=== PATIENT | female | born 1955 | race Caucasian/White ===

== ENCOUNTER → 2019-03-18 08:56 | Outpatient (CLI) | payer MEDICARE, OTHER, SELFPAY ==
--- NOTE | 2019-03-18 08:58 | DI.RAD.S_ITS ---
PROCEDURE: XR ANKLE RT MIN 3V INDICATIONS: r ankle pain TECHNIQUE: 3 views of the ankle were acquired. COMPARISON: None. FINDINGS: Bones: Acute fracture involving tip of lateral malleolus is seen with no significant displacement of fracture fragments. No other fracture or dislocation. Ankle mortise is normally aligned. No suspicious bony lesions. Soft tissues: No tibiotalar joint effusion. Achilles tendon appears normal. Soft tissue swelling over lateral malleolus is seen. IMPRESSION: Tiny avulsion fracture involving tip of lateral malleolus. Mild lateral ankle soft tissue swelling. Dictated by: Shaun Kim M.D. on 03/18/2019 at 9:41 Approved by: Shaun Kim M.D. on 03/18/2019 at 9:42
== END ==
PROVIDERS: Visit Provider Physician Assistant
DX: M25.571 Pain in right ankle and joints of right foot (principal); S82.61XA Displaced fracture of lateral malleolus of right fibula, initial encounter for closed fracture; M79.89 Other specified soft tissue disorders
CPT/HCPCS: 73610

== ENCOUNTER 2024-03-26 11:21 | Observation (INO) | payer MEDICARE, OTHER, SELFPAY ==
[2024-03-26] VITALS (14 sets, daily range): BP systolic 158–204; BP diastolic 80–100; PULSE 56–74; RESP 14–31; TEMP 36.3–36.8; O2SAT 93–99; BMI 24.7
--- NOTE | 2024-03-26 | DI.ECHO.S_ITS ---
[facility] : : [address] : : [place] : : [id number] : : Phone: [phone] Echocardiogram Report + + :Name: TON HOLDER Study Date: 03/27/2024 Height: 63 in : :[facility] ReadingLocation: Weight: 140 lb : : Gender: Female BSA: 1.7 m2 : :: 1955 Age: 68 yrs BP: 139/69 mmHg: :Reason For Study: STROKE : :Ordering Physician: STEPHANIE, : :MIKA Golden Performed By: Nicole Soto : :Referring: MIKA BROWN : + + Interpretation Summary Left ventricular ejection fraction is estimated to be 50%. Injection of contrast documented no interatrial shunt. There is mild mitral regurgitation. The right ventricular systolic pressure is estimated to be at least 23 mmHg based on an estimated right atrial pressure of 3 mm Hg. There is mild tricuspid regurgitation. Procedure: A two-dimensional transthoracic echocardiogram with color flow and Doppler was performed. The study quality was technically adequate. There is no prior echocardiogram noted for this patient. A saline contrast injection was performed to assess for cardiac shunting. The patient was in sinus bradycardia with heart rates between 55-61 bpm during the exam. Left Ventricle: The left ventricle is normal in size and wall thickness. Left ventricular ejection fraction is estimated to be 50%. There are no obvious focal wall motion abnormalities noted but poor endocardial definition reduces the sensitivity for the detection of such. Right Ventricle: The right ventricle is normal in size and function. Atria: The left atrium is mildly dilated. Right atrial size is normal. There is no Doppler evidence for an interatrial shunt. Injection of contrast documented no interatrial shunt. Mitral Valve: The mitral valve is normal in structure and function. There is mild mitral regurgitation. Aortic Valve: The aortic valve is not well visualized. There is no aortic valve stenosis. There is trace aortic regurgitation. Tricuspid Valve: The tricuspid valve is normal in structure and function. There is mild tricuspid regurgitation. The right ventricular systolic pressure is estimated to be at least 23 mmHg based on an estimated right atrial pressure of 3 mm Hg. Pulmonic Valve: The pulmonic valve leaflets are thin and pliable; valve motion is normal. There is mild pulmonic regurgitation. Great Vessels: The aortic root is normal size. The dimensions of the ascending aorta are normal. The IVC is of normal diameter and collapses greater than 50% with a sniff. This suggests a low right atrial pressure of 3 mm Hg. Pericardium/ Pleura There is no pericardial effusion. There is no pleural effusion. MMode/2D Measurements & Calculations LVIDd: 3.8 cm LVOT diam: 2.0 cm LVIDs: 2.6 cm Ao root diam: 3.3 cm FS: 31.7 % asc Aorta Diam: 3.3 cm IVSd: 0.97 cm Ao Arch Diam (Prox Trans): 2.3 cm LVPWd: 0.63 cm LV chinchilla. diameter/BSA (cm/m^2): 2.3 LV sys. diameter/BSA (cm/m^2): 1.6 LA A2 area: 22.2 cm2 RA long axis: 4.8 cm LA A4 area: 15.2 cm2 RA area: 12.8 cm2 LA length (vol): 4.9 cm RA vol: 29.1 ml LA vol: 58.6 ml RA : 17.5 ml/m2 LA vol index: 35.2 ml/m2 IVC diam: 1.7 cm RVD1 (basal): 3.8 cm RVD2 (mid): 2.7 cm TAPSE: 1.9 cm Doppler Measurements & Calculations Ao V2 max: 115.4 cm/sec LVOT Max Rodolfo: 77.9 cm/sec Ao V2 mean: 82.0 cm/sec LV V1 max P.4 mmHg Ao max P.3 mmHg LV V1 VTI: 20.8 cm Ao mean P.9 mmHg FREDIS(I,D): 2.2 cm2 Ao V2 VTI: 28.4 cm FREDIS(V,D): 2.1 cm2 sev ratio: 0.73 FREDIS indexed to BSA (cm^2/m^2): 1.3 MV E max rodolfo: 50.8 cm/sec TR max rodolfo: 222.7 cm/sec MV A max rodolfo: 65.6 cm/sec TR max P.8 mmHg MV E/A: 0.77 PA V2 max: 69.7 cm/sec Med Peak E' Rodolfo: 6.1 cm/sec PA V2 mean: 47.2 cm/sec E/E' med: 8.3 PA mean P.99 mmHg Lat Peak E' Rodolfo: 8.5 cm/sec PA pr(Accel): 22.5 mmHg E/E' lat: 6.0 E/e' average: 7.2 MV dec time: 0.35 sec SV(LVOT): 63.4 ml Reading Physician:09:37 AM
--- NOTE | 2024-03-26 11:48 | EKG_ITS ---
[address] [address] Test Date: 2024-03-26 Pat Name: Colleen Tomlinson Department: [facility] Room: Gender: Female [employer] Designer: MATT HEMPHILL : 1955 Requested By: Order Number: [id number] Reading MD: Greg Nails MD Measurements Intervals [place] Rate: 63 P: 58 [place]: 168 QRS: -29 QRSD: 74 T: 47 QT: 458 QTc: 468 Interpretive Statements Normal sinus rhythm Electronically Signed On 03-27-2024 7:56:37 PDT by Greg Nails MD
--- NOTE | 2024-03-26 11:48 | DI.RAD.S_ITS ---
PROCEDURE: XR CHEST 1V INDICATIONS: Possible stroke TECHNIQUE: One view of the chest was acquired. COMPARISON: None. FINDINGS: Surgical changes and devices: Surgical clips project over the mediastinum. Lungs and pleura: Lungs are clear. No pleural effusions or pneumothorax. Mediastinum: Mediastinal contours appear normal. Heart size is normal. Bones and chest wall: No suspicious bony lesions. Overlying soft tissues appear unremarkable. IMPRESSION: No acute cardiopulmonary abnormality is seen. Dictated by: Jeet Arnold M.D. on 03/26/2024 at 11:36 Approved by: Jeet Arnold M.D. on 03/26/2024 at 11:37
--- NOTE | 2024-03-26 11:49 | DI.CT.S_ITS ---
PROCEDURE: CT HEAD/BRAIN WO CON INDICATIONS: r/o stroke TECHNIQUE: Noncontrast 4.5 mm thick angled axial sections acquired from the foramen magnum to the vertex, with coronal and sagittal reformats. For radiation dose reduction, the following was used: automated exposure control, adjustment of mA and/or kV according to patient size. COMPARISON: None. FINDINGS: Image quality: Diagnostic. CSF spaces: Basal cisterns are patent. No extra-axial fluid collections. The ventricles are symmetric in size and shape. Brain: No intracranial bleeds or masses. There is cerebral volume loss for age, with resultant ventricular and sulcal prominence. There are periventricular and deep white matter chronic small vessel ischemic changes. There is intracranial internal carotid artery atherosclerosis. Skull and face: Calvarium and visualized facial bones appear intact, without suspicious lesions. Sinuses: Visualized sinuses and mastoids are clear. IMPRESSION: No acute intracranial pathology. Dictated by: eJet Arnold M.D. on 03/26/2024 at 11:55 Approved by: Jeet Arnold M.D. on 03/26/2024 at 11:56
--- NOTE | 2024-03-26 11:50 | DI.CT.S_ITS ---
PROCEDURE: CT ANGIO HEAD AND NECK INDICATIONS: r/o stroke TECHNIQUE: After the administration of intravenous contrast, 1 mm thick sections acquired from the aortic arch through the [place] of [place]. 3-dimensional bdahpmx-zxrfklwij-yzdkashinu (MIP) and/or volume rendering reformats were acquired of the central intracranial vasculature and neck separately. For radiation dose reduction, the following was used: automated exposure control, adjustment of mA and/or kV according to patient size. COMPARISON: [facility], CT, CT HEAD/BRAIN WO CON, 03/26/2024, 12:02. FINDINGS: Image quality: Diagnostic. BRAIN: CSF spaces: Ventricles are normal in size and shape. Basal cisterns are patent. No extra-axial fluid collections. Brain: No significant abnormality of the brain can be seen. Skull and face: Calvarium and facial bones appear intact, without suspicious lesions. Orbits appear normal. Sinuses: Sinuses and mastoids are clear. HEAD CT ANGIOGRAPHY: Anterior circulation: Intracranial internal carotid arteries are normal in size and flow. The flow within the paired anterior cerebral arteries is normal and symmetric. The flow within the middle cerebral arteries is normal and symmetric. The anterior communicating artery is seen. No aneurysms are seen. Posterior circulation: Visualized portions of the vertebral arteries demonstrate normal caliber, and join to form a normal appearing basilar artery. Flow within the posterior cerebral arteries is normal and symmetric. No aneurysms are seen. NECK CT ANGIOGRAPHY: Carotid system: The great vessels demonstrate a conventional anatomy as they arise from the aortic arch. The origins of the common carotid arteries appear patent. The common carotid arteries demonstrate normal caliber and courses. The bifurcation regions are both widely patent. The internal carotid arteries demonstrate normal calibers and courses. Posterior circulation: The origins of the vertebral arteries both appear widely patent. The more superior extracranial portions of both vertebral arteries also demonstrate normal courses and calibers. They join to form a normal appearing basilar artery. Soft tissues: Visualized neck soft tissues demonstrate no suspicious abnormalities. Bones: No suspicious bony lesions. Visualized cervical spine appears normally aligned. IMPRESSION: No significant intracranial arterial abnormality is seen. No significant abnormality is seen within the arteries of the neck. Any quantitative measurements of stenosis were performed using NASCET criteria. Dictated by: Jeet Arnold M.D. on 03/26/2024 at 11:52 Approved by: Jeet Arnold M.D. on 03/26/2024 at 11:55
--- NOTE | 2024-03-26 12:05 | ED.NEUROSD ---
HPI - Neuro Symptoms/Deficit General Chief Complaint: Neuro Symptoms/Deficit Stated Complaint: poss stroke Time Seen by Provider: 03/26/24 11:57 Source: patient Mode of arrival: Ambulatory Limitations: no limitations History of Present Illness HPI Narrative: 68-year-old female history of hypertension, skin cancers who presents with complaint of left upper extremity and lower extremity weakness with a little bit of sensation change. Patient states maybe a little bit her left cheek as well. She noticed changes yesterday they had driven from [place] she got out of the car at the grocery store noticed it was difficult for her to lift her leg out of the car. She is noticed she has had a little bit of leg dragging the left side she has had a work little bit harder to walk. She is noticed her left upper extremity has also been weaker. She denies any vision changes no difficulty with speech. No headaches. Denies any fevers. No chest pain or shortness of breath. No nausea or vomiting. No other GI or urinary symptoms. Has not had similar symptoms in the past. Patient states she has had prior lumpectomy with breast reconstruction in 1999 8. In 2020 she had multiple surgeries and skin grafts for a basal cell carcinoma and MAC of the forehead and nose. Patient takes losartan and metoprolol as her home medications. States she was allergic to wall but no known drug allergies. Denies tobacco, occasional alcohol, no recreational drugs. She lives in [place] and is visiting the area with her . On Anticoagulants: No Related Data Home Medications Medication Instructions Recorded Confirmed denosumab 60 mg/mL subcutaneous 60 mg SUBCUT [id number] 03/18/19 03/26/24 syringe (Prolia) letrozole 2.5 mg tablet 2.5 mg PO ONCE PM 03/26/24 03/26/24 losartan 100 mg tablet 100 mg PO DAILY 03/26/24 03/26/24 metoprolol succinate 25 mg 25 mg PO DAILY 03/26/24 03/26/24 tablet,extended release 24 hr triamcinolone acetonide 0.1 % 1 applic topical DAILY 03/26/24 03/26/24 topical ointment Allergies Allergy/AdvReac Type Severity Reaction Status Date / Time No Known Drug Allergies Allergy Verified 03/18/19 10:02 Review of Systems Review of Systems ROS Unobtainable: All systems reviewed & are unremarkable except as noted in HPI and below Hematologic/Lymphatic On Anticoagulants: No Patient History Social History household members: spouse Smoking Status: Never smoker alcohol intake: current Smoking Status: Never smoker alcohol intake frequency: 0-2 drinks per day Substance Use Type: does not use Exam Narrative Exam Narrative: GEN: well nourished, well appearing female, alert and oriented x 3, patient appears to be in mild distress. HEENT: Atraumatic, patient does have some healed scarring of the left forehead and nose consistent with her history of prior surgeries and skin graft, pupils are equal round reactive to light, extraocular movements are intact, nares are clear, there is no conjunctival pallor. Throat is clear without any exudates, erythema, tonsillar enlargement or uvular deviation, no facial droop. HEART: Regular rate and rhythm without murmur, clicks, rubs. Pulses are equal in upper and lower extremities LUNGS:Lungs clear to auscultation, no wheezes, rales, crackles, chest moves symmetrically ABD:bowel sounds normal, soft, non-tender, no guarding, rebound, rigidity, no masses noted, no hepatosplenomegaly :No CVA tenderness MSCL: Non-tender, no muscle atrophy, patient has drift with her left upper extremity, full range of motion, normal gait NEURO:CN 2-12 intact, sensation normal, finger nose finger test normal with the right upper extremity patient has some mild difficulty with the left, heel hutton test normal the right patient appears to after try a little bit harder with her left lower extremity.. SKIN: No rash, erythema or other skin changes. Initial Vital Signs Initial Vital Signs: Vital Signs Temperature 98.2 F 03/26/24 11:25 Pulse Rate 72 03/26/24 11:25 Respiratory Rate 23 03/26/24 11:25 Blood Pressure 204/100 H 03/26/24 11:25 Pulse Oximetry 98 03/26/24 11:25 Oxygen Delivery Method Room Air 03/26/24 11:25 Scores NIH Stroke Scale Level of Conciousness: Alert, keenly responsive Ask month/age: Answers both questions correctly. Open/close eyes, close hand: Performs both tasks correctly Best gaze horizontal: Normal Visual yanes: No visual loss Facial palsy: Normal symetrical movement Left arm drift: Drifts down, not to bed Right arm drift: No drift for full 10 sec Left leg drift: No drift for full 5 sec Right leg drift: No drift for full 5 sec Limb ataxia: Present in two limbs Sensory on face/arms/legs: Normal, no sensory loss Best language: No aphasia, normal Dysarthria: Normal Extinction or inattention: No abnormality Total NIH Stroke scale score: 3 Course Orders Ordered: ED Orders 03/26/24 11:44 Complete Blood Count AUTO DIFF Stat Comprehensive Metabolic Panel Stat Magnesium Stat PTT Partial Thromboplastin Elliot Stat Prothrombin Time INR Stat Troponin & CK Cardiac Panel Stat 03/26/24 11:48 XR chest 1V Stat EKG-12 Lead Stat 03/26/24 11:49 CT head/brain wo con Stat 03/26/24 11:50 CT angio head and neck Stat 03/26/24 12:23 Urine Drug Screen, Rapid Stat Urine Microscopic Stat Acetaminophen (Acetaminophen 325 Mg Tablet) 650 mg PO Q6H PRN PRN Reason: Fever/Mild Pain (1-3) Aspirin (Aspirin Ec 81 Mg Tablet) 81 mg PO DAILY [facility] Atorvastatin Calcium (Atorvastatin 20 Mg Tablet) 80 mg PO BEDTIME [facility] Calcium Carbonate (Calcium Carbonate 500 Mg Tab) 1,000 mg PO Q4HR PRN PRN Reason: Dyspepsia Clopidogrel Bisulfate (Clopidogrel 75 Mg Tablet) 75 mg PO DAILY [facility] Last Admin: 03/26/24 15:20 Dose: 75 mg Documented By: MPO Heparin Sodium (Porcine) (Heparin 5,000 Unit/Ml Vial) 5,000 unit SUBCUT BID [facility] Last Admin: 03/26/24 15:20 Dose: 5,000 unit Documented By: MPO Letrozole (Letrozole 2.5 Mg Tablet) 2.5 mg PO BEDTIME [facility] Naloxone HCl (Naloxone 0.4 Mg/Ml Vial) 0.2 mg IV Q2MIN PRN PRN Reason: Opiate Reversal Ondansetron HCl (Ondansetron 4 Mg/2 Ml Inj) 4 mg IV NOW PRN PRN Reason: Nausea And Vomiting Ondansetron HCl (Ondansetron 4 Mg Odt) 4 mg SL NOW PRN PRN Reason: Nausea And Vomiting Ondansetron HCl (Ondansetron 4 Mg/2 Ml Inj) 4 mg IV Q8HR PRN PRN Reason: Nausea And Vomiting Discontinued Medications Aspirin (Aspirin 81 Mg Chew Tab) 324 mg PO NOW ONE Stop: 03/26/24 13:29 Last Admin: 03/26/24 13:50 Dose: 324 mg Documented By: ALEE Aspirin (Aspirin Ec 81 Mg Tablet) 81 mg PO DAILY [facility] Last Admin: 03/26/24 15:26 Dose: Not Given Documented By: ALEE Vital Signs Vital signs: Vital Signs - 8 hr 03/26/24 11:25 03/26/24 11:36 03/26/24 11:45 Temperature 98.2 F Pulse Rate 72 74 Respiratory Rate 23 31 H Blood Pressure 204/100 H 194/91 H Pulse Oximetry 98 95 Oxygen Delivery Method Room Air 03/26/24 11:45 03/26/24 12:00 03/26/24 12:00 Temperature Pulse Rate 63 65 Respiratory Rate 26 H 29 H Blood Pressure 181/92 H Pulse Oximetry 97 97 Oxygen Delivery Method MDM - Neuro Symptoms/Deficit Lab Data 03/26/24 11:44 03/26/24 11:44 Labs: Lab Results 03/26/24 03/26/24 Range/Units 11:44 12:23 WBC 8.1 (4.5-11.0) X10^3/uL RBC 4.68 (4.0-5.2) X10^6/uL Hgb 13.8 (12.0-16.0) g/dL Hct 41.2 (36-46) % MCV 88.0 (80-100) fL MCH 29.4 (26-34) PG MCHC 33.4 (30-36) % RDW 14.3 (11.6-14.8) % Plt Count 287 (150-400) X10^3/uL Neut % (Auto) 61.3 (50-75) % Lymph % (Auto) 28.8 (25-40) % [place] % (Auto) 6.8 (3-14) % Eos % (Auto) 2.0 (2-4) % Baso % (Auto) 1.1 (0-2) % Neut # (Auto) 4900 (8417-6411) /uL Lymph # (Auto) 2300 (2223-8542) /uL [place] # (Auto) 600 (0-900) /uL Eos # (Auto) 200 (0-450) /uL Baso # (Auto) 100 (0-100) /uL PT 11.1 (9.4-12.5) SECONDS INR 1.0 (0.9-1.3) APTT 36 (25.1-36.5) SECONDS Sodium 140 (137-145) mmol/L Potassium 4.3 (3.4-5.1) mmol/L Chloride 109 H (98-107) mmol/L Carbon Dioxide 25 (22-32) mmol/L BUN 17 (7-17) mg/dL Creatinine 0.67 (0.52-1.04) mg/dL Estimated GFR > 60 (>60) mL/min BUN/Creatinine Ratio 25.4 H (6-22) Glucose 111 H (80-110) mg/dL Hemoglobin A1c 5.7 (4.0-6.0) % Calcium 9.5 (8.4-10.2) mg/dL Magnesium 2.4 H (1.6-2.3) mg/dL Total Bilirubin 1.1 (0.2-1.3) mg/dL AST 25 (14-36) IU/L ALT 17 (<35) IU/L Alkaline Phosphatase 96 (38-126) U/L Total Creatine Kinase 74 (30-135) U/L Troponin I < 0.012 (0.01-0.034) ng/mL Total Protein 7.8 (6.3-8.2) g/dL Albumin 4.2 (3.5-5.0) g/dL Globulin 3.6 (1.7-4.1) g/dL Albumin/Globulin Ratio 1.2 (1.0-2.8) Urine RBC None seen (0-5/HPF) Urine WBC None seen (0-5/HPF) Ur Squamous Epith Cells None seen (0-5/HPF) Urine Bacteria None seen (None) Ur Culture Indicated? Cult not indicated Vol Urine Centrifuged 10ml (spun) U Opiates 300ng/mL cut Negative (Negative) Ur Oxycodone Screen Negative (Negative) Urine Methadone Screen Negative (Negative) Ur Barbiturates Screen Negative (Negative) U Tricyclic Antidepress Negative (Negative) Ur Phencyclidine Scrn Negative (Negative) Ur Amphetamines Screen Negative (Negative) U Methamphetamines Scrn Negative (Negative) Ur MDMA Scrn (Ecstasy) Negative (Negative) U Benzodiazepines Scrn Negative (Negative) Urine Cocaine Screen Negative (Negative) U Marijuana (THC) Screen Negative (Negative) Urine pH Normal (Normal) Urine Specific [place] Normal (Normal) Ur Creatinine Normal (Normal) Point of Care Testing Glucose POC 111 Urine Dip Bedside Urine Glucose Negative Bedside Urine Bilirubin - Negative Bedside Urine Ketone - Negative Urine Specific [place] 1.005 Bedside Urine Occult Blood - Negative Bedside Urine pH 6.5 Bedside Urine Protein - Negative Bedside Urine Urobilinogen - Negative Bedside Urine Nitrite - Negative Bedside Urine Leukocytes +/- [address] scan - head: Radiologist's Impression: [address] [address] [address] Scan Report Signed Patient: Colleen Tomlinson MR#: [id number] : 1955 Acct:[id number] Age/Sex: 68 / F Date of Service: 03/26/24 Loc: ED Accession Number: [id number] Procedure: CT head/brain wo con Ordering Provider: Tisha Levy D.O. PROCEDURE: CT HEAD/BRAIN WO CON INDICATIONS: r/o stroke TECHNIQUE: Noncontrast 4.5 mm thick angled axial sections acquired from the foramen magnum to the vertex, with coronal and sagittal reformats. For radiation dose reduction, the following was used: automated exposure control, adjustment of mA and/or kV according to patient size. COMPARISON: None. FINDINGS: Image quality: Diagnostic. CSF spaces: Basal cisterns are patent. No extra-axial fluid collections. The ventricles are symmetric in size and shape. Brain: No intracranial bleeds or masses. There is cerebral volume loss for age, with resultant ventricular and sulcal prominence. There are periventricular and deep white matter chronic small vessel ischemic changes. There is intracranial internal carotid artery atherosclerosis. Skull and face: Calvarium and visualized facial bones appear intact, without suspicious lesions. Sinuses: Visualized sinuses and mastoids are clear. IMPRESSION: No acute intracranial pathology. Dictated by: Jeet Arnold M.D. on 03/26/2024 at 11:55 Approved by: Jeet Arnold M.D. on 03/26/2024 at 11:56 CTA - brain/neck: Radiologist's Impression: [address] [address] [address] Scan Report Signed Patient: Colleen Tomlinson MR#: [id number] : 1955 Acct:[id number] Age/Sex: 68 / F Date of Service: 03/26/24 Loc: ED Accession Number: [id number] Procedure: CT head/brain wo con Ordering Provider: Tisha Levy D.O. PROCEDURE: CT HEAD/BRAIN WO CON INDICATIONS: r/o stroke TECHNIQUE: Noncontrast 4.5 mm thick angled axial sections acquired from the foramen magnum to the vertex, with coronal and sagittal reformats. For radiation dose reduction, the following was used: automated exposure control, adjustment of mA and/or kV according to patient size. COMPARISON: None. FINDINGS: Image quality: Diagnostic. CSF spaces: Basal cisterns are patent. No extra-axial fluid collections. The ventricles are symmetric in size and shape. Brain: No intracranial bleeds or masses. There is cerebral volume loss for age, with resultant ventricular and sulcal prominence. There are periventricular and deep white matter chronic small vessel ischemic changes. There is intracranial internal carotid artery atherosclerosis. Skull and face: Calvarium and visualized facial bones appear intact, without suspicious lesions. Sinuses: Visualized sinuses and mastoids are clear. IMPRESSION: No acute intracranial pathology. Dictated by: Jeet Arnold M.D. on 03/26/2024 at 11:55 Approved by: Jeet Arnold M.D. on 03/26/2024 at 11:56 Chest x-ray: Radiologist's Impression: Close Head/Neck CTA (Signed) Jeet Arnold - 03/26/[address] (Signed) Jeet Arnold - 03/26/24 Chest X-Ray (Signed) Jeet Arnold - 03/26/24 Ankle X-Ray (Signed) Shaun Kim - 03/18/19 [place] [address] XRay Report Signed Patient: Colleen Tomlinson MR#: [id number] : 1955 Acct:[id number] Age/Sex: 68 / F Date of Service: 03/26/24 Loc: ED Accession Number: [id number] Procedure: XR chest 1V Ordering Provider: Tisha Levy D.O. PROCEDURE: XR CHEST 1V INDICATIONS: Possible stroke TECHNIQUE: One view of the chest was acquired. COMPARISON: None. FINDINGS: Surgical changes and devices: Surgical clips project over the mediastinum. Lungs and pleura: Lungs are clear. No pleural effusions or pneumothorax. Mediastinum: Mediastinal contours appear normal. Heart size is normal. Bones and chest wall: No suspicious bony lesions. Overlying soft tissues appear unremarkable. IMPRESSION: No acute cardiopulmonary abnormality is seen. Dictated by: Jeet Arnold M.D. on 03/26/2024 at 11:36 Approved by: Jeet Arnold M.D. on 03/26/2024 at 11:37 ECG Data Attestation: I personally reviewed and interpreted this ECG as follows: Interpretation: Sinus rhythm rate of 63 MS 168 QRS is 74 QTC of 468. No acute ST elevation or depression. MDM Narrative Medical decision making narrative: 68-year-old female who presents with complaint of left-sided weakness numbness that has been 24 hours present. Patient noticed it after she was getting out of the car yesterday progressive little bit to her upper extremity. No so little bit of numbness. She is able to ambulate but does note weakness. She does have some change in her NIH today is 3. Patient's symptoms seem most consistent with stroke. Non-con head CT is negative, CT angio shows no acute intracranial abnormalities or vascular changes. Chest x-ray is negative for acute change. Labs show white count 8.1 hemoglobin of 13 platelets of 287. Coags are negative, chloride 109 electrolytes are otherwise normal creatinine 0.67, troponins less than 0.012 with a Mag of 2 point and glucose of 111. UDS is negative EKG shows sinus rhythm. Patient given aspirin 324 mg she does not take any anticoagulation. Patient is not tPA candidate based on being outside therapeutic window. Spoke with Dr. Bazan who accepts plan for observation for stroke workup. Stroke Core Measures Exclusion Criteria TPA in CVA: Symptom Onset >3 or 4.5 Hours Discharge Plan Departure Patient Disposition: Admitted as Observation Clinical Impression: Cerebrovascular accident Admit Date/Time: 03/26/24 14:01 Admit Provider: Sonny Bazan
[2024-03-26 12:06] LABS: Add Manual Diff / Slide Review NO; Basophils Absolute Auto 100 /uL (0-100); Basophils Percent Auto 1.1 % (0-2); Eosinophils Absolute Auto 200 /uL (0-450); Hematocrit 41.2 % (36-46); Hemoglobin 13.8 g/dL (12.0-16.0); Lymphocytes Absolute Auto 2300 /uL (1100-4500); Lymphocytes Percent Auto 28.8 % (25-40); Mean Corpuscular HGB Conc 33.4 % (30-36); Mean Corpuscular Hemoglobin 29.4 PG (26-34); Monocytes Absolute Auto 600 /uL (0-900); Monocytes Percent Auto 6.8 % (3-14); Neutrophils Absolute Auto 4900 /uL (1500-7000); Neutrophils Percent Auto 61.3 % (50-75); Platelet Count 287 X10^3/uL (150-400); Red Blood Cell Count 4.68 X10^6/uL (4.0-5.2); Red Cell Distribution Width 14.3 % (11.6-14.8); White Blood Cell Count 8.1 X10^3/uL (4.5-11.0)
[2024-03-26 12:07] LABS: Prothrombin Time 11.1 SECONDS (9.4-12.5)
[2024-03-26 12:09] LABS: PTT Partial Thromboplastin Tim 36 SECONDS (25.1-36.5)
[2024-03-26 12:12] LABS: Alanine Aminotransferase 17 IU/L (<35); Albumin 4.2 g/dL (3.5-5.0); Albumin Globulin Ratio 1.2 (1.0-2.8); Alkaline Phosphatase 96 U/L (38-126); Aspartate Aminotransferase 25 IU/L (14-36); BUN Creatinine Ratio 25.4 (6-22); Bilirubin Total 1.1 mg/dL (0.2-1.3); Blood Urea Nitrogen 17 mg/dL (7-17); Calcium 9.5 mg/dL (8.4-10.2); Carbon Dioxide 25 mmol/L (22-32); Chloride 109 mmol/L (98-107); Creatine Kinase 74 U/L (30-135); Estimated Glomerular Filt Rate > 60 mL/min (>60); Globulin 3.6 g/dL (1.7-4.1); Glucose 111 mg/dL (80-110); HEMOLYSIS < 15 (0-50); Magnesium 2.4 mg/dL (1.6-2.3); Potassium 4.3 mmol/L (3.4-5.1); Sodium 140 mmol/L (137-145); Total Protein 7.8 g/dL (6.3-8.2)
[2024-03-26 12:24] LABS: Troponin I < 0.012 ng/mL (0.01-0.034)
[2024-03-26 12:45] LABS: UR Morphine/Opiate cutoff 300 Negative (Negative); Ur Creatinine Normal (Normal); Ur Specific Gravity Normal (Normal); Urine Amphetamines Negative (Negative); Urine Barbiturates Negative (Negative); Urine Benzodiazepines Negative (Negative); Urine Cocaine Negative (Negative); Urine MDMA Negative (Negative); Urine Methadone Negative (Negative); Urine Methamphetamines Negative (Negative); Urine Oxycodone Negative (Negative); Urine Phencyclidine Negative (Negative); Urine Tetrahydrocannabinol Negative (Negative); Urine Tricyclic Antidepressant Negative (Negative); Urine pH Normal (Normal)
[2024-03-26] MEDS: ASPIRIN 81 MG CHEW TAB 324 MG PO (13:50)
--- NOTE | 2024-03-26 14:27 | P.HP_ITS ---
History of Present Illness History of Present Illness Date Patient Seen: 03/26/24 Chief complaint: poss stroke Narrative: From ED doctor: 68-year-old female history of hypertension, skin cancers who presents with complaint of left upper extremity and lower extremity weakness with a little bit of sensation change. Patient states maybe a little bit her left cheek as well. She noticed changes yesterday they had driven from [place] she got out of the car at the grocery store noticed it was difficult for her to lift her leg out of the car. She is noticed she has had a little bit of leg dragging the left side she has had a work little bit harder to walk. She is noticed her left upper extremity has also been weaker. She denies any vision changes no difficulty with speech. No headaches. Denies any fevers. No chest pain or shortness of breath. No nausea or vomiting. No other GI or urinary symptoms. Has not had similar symptoms in the past. Patient states she has had prior lumpectomy with breast reconstruction in 1999 8. In 2020 she had multiple surgeries and skin grafts for a basal cell carcinoma and MAC of the forehead and nose. Patient takes losartan and metoprolol as her home medications. States she was allergic to wall but no known drug allergies. Denies tobacco, occasional alcohol, no recreational drugs. She lives in [place] and is visiting the area with her . On Anticoagulants: No NIH 3, out of time window. S: She has no history of TIA or stroke. She does not smoke and denies a family history other than while mom with a possible TIA. She does have blood pressure which is likely suboptimally controlled with systolics in the 135-145 range. She developed some leg weakness yesterday, but having just drove from [place] up to [place] she thought are related to being in the car for a sustained period of time. This morning her leg was more weak and she would difficulty walking and she also noticed her left arm was somewhat weak. She denies facial droop or slurred speech. She was with her of 50 years. He has not noticed a facial droop either. She did not have a headache or visual changes. She came to the ER where a CT was negative. She does have left arm and leg weakness at 5- out of 5 for both. She was a positive pronator drift and a positive abnormal left straight leg raise. [facility] Social History household members: spouse Smoking Status: Never smoker alcohol intake: current Meds Home Medications and Allergies Home Medications Medication Instructions Recorded Confirmed Type denosumab 60 mg/mL subcutaneous 60 mg SUBCUT [id number] 03/18/19 03/26/24 History syringe (Prolia) letrozole 2.5 mg tablet 2.5 mg PO ONCE PM 03/26/24 03/26/24 History losartan 100 mg tablet 100 mg PO DAILY 03/26/24 03/26/24 History metoprolol succinate 25 mg 25 mg PO DAILY 03/26/24 03/26/24 History tablet,extended release 24 hr triamcinolone acetonide 0.1 % 1 applic topical DAILY 03/26/24 03/26/24 History topical ointment Allergies Allergy/AdvReac Type Severity Reaction Status Date / Time No Known Drug Allergies Allergy Verified 03/18/19 10:02 Review of Systems Review of Systems Narrative: All else reviewed and otherwise unremarkable except as noted in the history and physical. Exam Vital Signs (past 8 hours): - 03/26/24 11:25 03/26/24 11:36 03/26/24 11:45 Temperature 98.2 F Pulse Rate 72 74 Respiratory Rate 23 31 H Blood Pressure 204/100 H 194/91 H Pulse Oximetry 98 95 Oxygen Delivery Method Room Air 03/26/24 11:45 03/26/24 12:00 03/26/24 12:00 Temperature Pulse Rate 63 65 Respiratory Rate 26 H 29 H Blood Pressure 181/92 H Pulse Oximetry 97 97 Oxygen Delivery Method 03/26/24 14:19 03/26/24 14:20 03/26/24 14:20 Temperature Pulse Rate 58 L 64 Respiratory Rate 18 Blood Pressure 177/83 H Pulse Oximetry 99 99 Oxygen Delivery Method Room Air Oxygen Delivery Method Room Air Narrative Exam Narrative: NAD, alert and oriented, fluent speech, calm. Normocephalic skull, EOMI, anicteric sclera, symmetric pupils. Oropharynx unremarkable, no droop. Neck supple, midline trachea, no adenopathy. Lungs clear, normal rate and effort. Heart regular, no murmur gallop or rub. Abdomen is soft, non distended and non tender. Extremities are free of edema. Skin is free of rash or lesions. Joints are not swollen or deformed. Judgment appears to be normal. Neuro: Normal cranial nerves, normal speech, normal affect, no facial droop. A very subtle positive left pronator drift and a abnormal left straight leg raise with slow drift. Objective ECG Impression: NSR Imaging CT scan - head: Radiologist's impression: No acute intracranial pathology. CTA: No significant intracranial arterial abnormality is seen. No significant abnormality is seen within the arteries of the neck. Labs 03/26/24 11:44 03/26/24 11:44 Labs: Laboratory Results - last 24 hr 03/26/24 03/26/24 11:44 12:23 WBC 8.1 RBC 4.68 Hgb 13.8 Hct 41.2 MCV 88.0 MCH 29.4 MCHC 33.4 RDW 14.3 Plt Count 287 Neut % (Auto) 61.3 Lymph % (Auto) 28.8 [place] % (Auto) 6.8 Eos % (Auto) 2.0 Baso % (Auto) 1.1 Neut # (Auto) 4900 Lymph # (Auto) 2300 [place] # (Auto) 600 Eos # (Auto) 200 Baso # (Auto) 100 PT 11.1 INR 1.0 APTT 36 Sodium 140 Potassium 4.3 Chloride 109 H Carbon Dioxide 25 BUN 17 Creatinine 0.67 Estimated GFR > 60 BUN/Creatinine Ratio 25.4 H Glucose 111 H Calcium 9.5 Magnesium 2.4 H Total Bilirubin 1.1 AST 25 ALT 17 Alkaline Phosphatase 96 Total Creatine Kinase 74 Troponin I < 0.012 Total Protein 7.8 Albumin 4.2 Globulin 3.6 Albumin/Globulin Ratio 1.2 U Opiates 300ng/mL cut Negative Ur Oxycodone Screen Negative Urine Methadone Screen Negative Ur Barbiturates Screen Negative U Tricyclic Antidepress Negative Ur Phencyclidine Scrn Negative Ur Amphetamines Screen Negative U Methamphetamines Scrn Negative Ur MDMA Scrn (Ecstasy) Negative U Benzodiazepines Scrn Negative Urine Cocaine Screen Negative U Marijuana (THC) Screen Negative Urine pH Normal Urine Specific [place] Normal Ur Creatinine Normal Assessment & Plan Assessment & Plan narrative: 1. Subacute CVA, present on admission and active. 2. Hypertension, present on admission and active. 3. Breast cancer, present on admission and active. 4. Osteoporosis, present on admission and active. PLAN: -DAPT for 21 days -High dose statin -MRI brain -ECHO -PT/OT evaluations. -telemetry. Expect a 1 night need for hospital services, admitted to observation status. Full code CIARRA: 03/27. Time-Based Coding :: 40 spent with patient and on the chart (including review of chart, obtaining history, exam, reviewing outside data, placing orders, documenting exam and treatment plan, and counseling patient) on 03/26. Quality MIPS - Admit I confirm the patient?s Advance Care Plan is present, Code status is documented, Surrogate decision maker is in patient?s record [If Yes, STOP here]: Yes MIPS - Meds 'Current medications' to include all prescriptions, [id number] products, herbals, cannabis/cannabidiol products, and vitamin/mineral/dietary (nutritional) supplements. I have utilized all available resources to obtain, update, or review the patient?s current medications. [If Yes, STOP here]: Yes
--- NOTE | 2024-03-26 14:44 | PC.NURSE ---
Pt is at [facility]. Unable to medicate as per MAR at this time.
--- NOTE | 2024-03-26 15:00 | DI.MRI.S_ITS ---
PROCEDURE: MR HEAD/BRAIN WO CON INDICATIONS: weakness TECHNIQUE: Non-contrast axial T1 spin echo, axial T2 fast spin echo, sagittal and axial FLAIR, coronal T2 fast spin echo, axial gradient echo, axial diffusion and ADC through the brain. COMPARISON: [facility], CT, CT ANGIO HEAD AND NECK, 03/26/2024, 12:02. [facility], CT, CT HEAD/BRAIN WO CON, 03/26/2024, 12:02. FINDINGS: Image quality: This examination is limited by involuntary motion artifact. CSF spaces: Ventricles appear symmetric in size and shape. Basal cisterns are patent. No extra-axial fluid collections. Brain: Within the deep white matter of the right frontal lobe, there is a focus of abnormal diffusion-weighted signal seen, with associated dark signal on the ADC map. Developing T2 weighted signal can be seen at this site. No intracranial bleeds or mass effects. There is cerebral volume loss for age. There are periventricular and deep white matter chronic small vessel ischemic changes. Brainstem appears normal. No chronic ischemic insults. Normal intravascular flow voids are present. Incidental note is made of hyperostosis frontalis. This is not considered to be pathologic in a woman of this age. Skull and face: Calvarial bone marrow is normal in signal. Orbits are normal. Incidental note is made of hyperostosis frontalis. This is not considered to be pathologic in a woman of this age. Sinuses: Sinuses and mastoids are clear. IMPRESSION: There is a subacute infarction seen involving the deep white matter of the right frontal lobe. Dictated by: Fady Lopez M.D. on 03/26/2024 at 14:07 Approved by: Fady Lopez M.D. on 03/26/2024 at 14:09
[2024-03-26] MEDS: HEPARIN 5,000 UNIT/ML VIAL 5000 UNIT SUBCUT ×2 (15:20→21:00)
[2024-03-26] MEDS: CLOPIDOGREL 75 MG TABLET PO (15:20)
[2024-03-26 15:56] LABS: Bacteria Urine None Seen; Culture Indicated Urine Cult Not Indicated; RBC Urine None Seen (0-5/HPF); Squamous Epithelial Cell Urine None Seen (0-5/HPF); Urine Volume 10mL (spun); WBC Urine None Seen (0-5/HPF)
--- NOTE | 2024-03-26 17:27 | OT.IP.EVAL ---
Occupational Therapy Inpatient Evaluation/Re-Eval M1 PT/OT-IP Prior Functional Status Start: 03/26/24 17:22 Freq: NEEDED Status: Active Protocol: Document 03/26/24 17:22 [facility] (Rec: 03/26/24 17:59 [facility] [id number]) Medical Review Prior Functional Status Communication Independent Mobility and Gait Independent with no devices. Activities of Daily Living and IADL's Completely independent with all ADL, IADL needs, and drives. Social History Household Members spouse Living Arrangements House Number of Stairs To Enter/Railing? Pt currently staying at her friend's house on [facility] and is visiting from [place]. 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 Diagnosis Onset Date 03/26/24 M3 OT- IP Subjective and Pain Start: 03/26/24 17:22 Freq: Status: Active Protocol: Document 03/26/24 17:22 [facility] (Rec: 03/26/24 17:59 [facility] [id number]) OT- Subjective Occupational Therapy Visit Type Type Initial Evaluation Visit Start Time 16:40 Visit Stop Time 15:27 Occupational Therapy Visit Comments Patient Comments Pt agreed to get up and do OT eval. Patient/Caregiver Goals To go home. OT Pain Assessment Pain When Pain Assessed At Rest Pain Present Pain Present Denied Pain M4 OT- IP ADL's Start: 03/26/24 17:22 Freq: Status: Active Protocol: Document 03/26/24 17:22 [facility] (Rec: 03/26/24 17:59 [facility] [id number]) OT [id number] Comments OT Self-Feeding Comments Not at meal time. OT ADL-Grooming General Evaluation Grooming Ability Independent Comments OT Grooming Comments Pt able to do with slight increased time to use left hand. OT ADL-Oral Care General Eval Oral Care Ability Independent OT ADL-Dressing General Eval Lower Body Dressing Ability Independent Comments OT Dressing Comments Pt able to independently yifan/ doff her socks while seated. Pt states feels that she has to concentrate using her left hand more. OT ADL-Toileting Comments OT Toileting Comments Pt not having to go and states will call nursing if needing to go to the bathroom. OT ADL-Bathing Comments OT Bathing Comments At this time may be best to use a shower chair. M5 OT- IP IADL's Start: 03/26/24 17:22 Freq: Status: Active Protocol: Document 03/26/24 17:22 [facility] (Rec: 03/26/24 17:59 [facility] [id number]) OT-Instrumental Activities of Daily Living Home Safety Awareness Awareness of Need for Assistance at Home Good Awareness Medication Management Medication Management Comments Pt will benefit from supervision from her . Money Management Money Management Comments Pt will benefit from supervision from her . Meal Preparation Meal Preparation Comments Pt will benefit from assist. Industrial Relations Worker Industrial Relations Worker Comments Pt will benefit from assist. Driving Driving Concerns Identified Regarding Safety M6 OT- IP Functional Cognition Start: 03/26/24 17:22 Freq: Status: Active Protocol: Document 03/26/24 17:22 [facility] (Rec: 03/26/24 17:59 [facility] [id number]) Cognitive Factors Limiting Selfcare Function Cognitive Ability Level of Alertness Alert Patient Orientation Name,Age,Birthday,Month,Date, Year,Day of Week,Place, Situation Attention Span Ability Capable of Focused Attention, Capable of Sustained Attention Ability to Follow Commands Able to Follow One Step Commands Memory Description No Deficits Noted Problem Solving Ability No deficits Noted Executive Function Ability Unable to Remember Details Cognitive Tests SLUMS Pt scored 26/30 which implies normal for cognition. Pt needing increased time to come up with answers at time. Pt not able to draw the hours hands correctly on the clock after time given and able to answer 3/4 questions right after paragraph read. Cognitive Comments Cognitive Assessment Comments Pt scored 73 seconds on [place] Making Part B which implies normal but not perfect for visual attention, speed of processing, executive functioning, mental flexibility, and task switching. Pt aware to hold off on driving at this time. Pt score is 80% for her age. OT- Vision and Hearing OT- Hearing Assessment OT- Hearing Assessment WFL OT- Vision Assessment Visual Acuity Glasses For Reading Vision Assessment Comments Pt initially eyes slow to scan and having hesitation and improved during assessment. M7 OT- IP Mobility and Balance Start: 03/26/24 17:22 Freq: Status: Active Protocol: Document 03/26/24 17:22 [facility] (Rec: 03/26/24 17:59 [facility] [id number]) OT- Bed Mobility Assessment Rolling Level of Assistance Independent Supine to Sit Supine to Sit Assist Independent Sit to Supine Sit to Supine Assist Independent Scooting Scooting to Edge of Bed Independent OT-Transfer Assessment Sit to and From Stand Sit to and from Stand Independent Transfers Transfer Ability Standby Assistance Technique Transfer Destination Bed Transfer Technique Stand Step Pivot Devices Transfer Assistive Devices None Comments Mobility Comments Independent for all mobility needs and distant SBA while walking in the room. Pt states feels weaker on her LLE. OT- Balance Assessment Sitting Balance and Reactions Static Sitting Balance Ability Normal Dynamic Sitting Balance Ability Normal Standing Balance and Reactions Static Standing Balance Ability Normal Dynamic Standing Balance Ability Good M8 OT- IP Objective Assessments Start: 03/26/24 17:22 Freq: Status: Active Protocol: Document 03/26/24 17:22 [facility] (Rec: 03/26/24 17:59 [facility] [id number]) OT Gross Range of Motion Upper Extremity Range of Motion Assessment Within Functional Limits OT Strength Upper Extremity Strength Assessment Left Impaired Comments Strength Comments LUE4-/5 OT- Coordination Assessment Upper Extremity Finger to Nose Test Within Functional Limits Comments Coordination Comments Increased time for finger to nose with left hand. Right hand 9 hole peg 21 seconds 75% for her age. Left hand 9 hole peg 31 second under 25% for her age. Able to give pt theraputty for hand strengthening needs. OT Sensation Assessment Comments Summary Comments Decreased for kinesthesia from wrist to distally. M9 OT- IP Assessment and Plan Start: 03/26/24 17:22 Freq: Status: Active Protocol: Document 03/26/24 17:22 [facility] (Rec: 03/26/24 17:59 [facility] [id number]) OT Summary Assessment and Plan Potential Rehabilitation Potential Excellent Analytic Complexity at Evaluation Moderate Summary OT Impairments Balance,Coordination, Functional Cognition, Functional Mobility,Dressing, Toileting,Bathing,Toilet Transfers,Shower Transfers Progress Towards Goals Progressing Toward Goals Assessment Summary Pt MOD complexity and havin subacute CVA which resulting in slight weakness with LUE and LLE, now needing increased time for problem solving and executive functioning. Pt has a very supportive to assist her. OT has given pt theraputty for hand exercises to help strengthen her left hand. Pt to go home with assist when medically stable. Goals Dressing Goal Independent Toileting Goal Independent Bathing Goal Independent Toilet Transfer Goal Independent Shower Transfer Goal Independent Days to Meet Goals 3 Frequency of Treatment Frequency Of Treatment Once a Day Treatment Plan OT Treatment Plan ADL Training,Functional Cognition Training,Functional Mobility,Vision Retraining, Discharge Planning Discharge Recommendations OT Discharge Recommendations Home with Assistance Transportation Needs at Discharge Private Vehicle
[2024-03-26 17:41] LABS: Hemoglobin A1C% w Est Avg Glu 5.7 % (4.0-6.0)
[2024-03-26] MEDS: ATORVASTATIN 20 MG TABLET 80 MG PO (20:59)
[2024-03-26] MEDS: LETROZOLE 2.5 MG TABLET PO (21:00)
[2024-03-27 03:13] VITALS: BP 139/69; PULSE 65; RESP 13; TEMP 36.4; O2SAT 97
[2024-03-27 05:05] LABS: Add Manual Diff / Slide Review NO; Basophils Absolute Auto 100 /uL (0-100); Basophils Percent Auto 1.2 % (0-2); Eosinophils Absolute Auto 300 /uL (0-450); Eosinophils Percent Auto 3.7 % (2-4); Hematocrit 40.3 % (36-46); Hemoglobin 13.6 g/dL (12.0-16.0); Lymphocytes Absolute Auto 2900 /uL (1100-4500); Lymphocytes Percent Auto 39.5 % (25-40); Mean Corpuscular HGB Conc 33.7 % (30-36); Mean Corpuscular Hemoglobin 29.7 PG (26-34); Monocytes Absolute Auto 600 /uL (0-900); Monocytes Percent Auto 8.8 % (3-14); Neutrophils Absolute Auto 3400 /uL (1500-7000); Neutrophils Percent Auto 46.8 % (50-75); Platelet Count 260 X10^3/uL (150-400); Red Blood Cell Count 4.58 X10^6/uL (4.0-5.2); Red Cell Distribution Width 14.2 % (11.6-14.8); White Blood Cell Count 7.2 X10^3/uL (4.5-11.0)
[2024-03-27 05:15] LABS: Blood Urea Nitrogen 14 mg/dL (7-17); Calcium 8.7 mg/dL (8.4-10.2); Carbon Dioxide 26 mmol/L (22-32); Chloride 109 mmol/L (98-107); Estimated Glomerular Filt Rate > 60 mL/min (>60); Glucose 99 mg/dL (80-110); HEMOLYSIS 25 (0-50); Potassium 4.1 mmol/L (3.4-5.1); Sodium 140 mmol/L (137-145)
[2024-03-27 08:00] VITALS: BP 172/73; PULSE 56; RESP 19; TEMP 36.1; O2SAT 96
[2024-03-27] MEDS: HEPARIN 5,000 UNIT/ML VIAL 5000 UNIT SUBCUT (08:31)
[2024-03-27] MEDS: ASPIRIN EC 81 MG TABLET PO (08:31)
[2024-03-27] MEDS: CLOPIDOGREL 75 MG TABLET PO (08:31)
--- NOTE | 2024-03-27 09:25 | CM.DANOTE ---
Patient is a 68 yo female who was admitted INPT Status for CVA. Pt has M[employer] and [employer] for insurance and her PCP is in [place]. EMR was reviewed. Per MD, pt with hx of skin CA and basal cell carcinoma and breast lumpectomy and admitted for Subacute CVA. Pt improving and may be stable for d/c later today pending further therapies and labs. Per OT, recommending home with assist. PT/ST pending. SW met bedside with pt and explained role and pt confirms she lives with her in [place] and both are very active and independent at baseline and does not use DME and drives. Pt denies hx of HH or SNF. Pt confirms she and spouse just drove up from [place] as every year to come to [place] to stay with their friends on [facility] for a week and then they have plans to drive to [place] and [place] to see their grandson and family before going back to [place]. Pt denies any discharge needs at this time and looking forward to further therapies and is hopeful to discharge today. Pt confirms that her spouse will provide transport at d/c and they will resume staying at their friend's house and no concerns at this time. Plan: SW to follow closely for PT/ST eval to confirm safe d/c home with spouse assist to friend's house and any further identified discharge planning needs. GABY Louise Discharge Planning/Care Management CM Discharge Assessment Start: 03/27/24 09:24 Freq: Status: Active Protocol: Document 03/27/24 09:24 [facility] (Rec: 03/27/24 09:25 [facility] [id number]) Discharge Planning Assessment Assigned Diabetes Trainer GABY Enciso DPOA/Assigned Designee Name spouse Magno Contact Information [phone] Advance Directives? No Advance Directives on File No History Provided By Patient,Medical Record Has Patient been admitted in last 30 No days? 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 Yes Caregiver for Another No Barriers to Discharge No Discharge Plan Home Transportation Arrangement spouse will transport at d/c Referrals Initiated None needed Whiteboard Updated in Patient Room with Yes name and ext. # of Diabetes Trainer Review Status In Process Please Provide Date Initial DC 03/27/24 Assessment Was Performed Next Review Type Continued Stay Review
--- NOTE | 2024-03-27 09:37 | ST.IPIE ---
Visit Care Team Role Provider Type Tisha Levy DO Emergency Provider Physician Referring Provider Specialty: Emergency Medicine Address: [address] [place] [address], [address] Email: [email or web address] Sonny Bazan MD Admit Provider Physician Attending Provider Specialty: Internal Medicine Address: [address] [place] [address], [id number] Email: [email or web address] Initial Evaluation Report FERRYBOAT OPERATOR Adult Cognitive Linguistic Eval Start: 03/27/24 09:22 Freq: Status: Active Protocol: Document 03/27/24 09:22 CG (Rec: 03/27/24 09:37 CG [id number]) Adult Cognitive Linguistic Evaluation Session Time Visit Start Time 09:03 Visit Stop Time 09:18 Total Visit Minutes 15 Visit Information Visit Number [address] Sonny Bazan Reason for Referral R subacute infarct Setting Assessment Location Acute Care Visit Type Note Type Initial evaluation Next Note Type Next Note Type Discharge Summary Patient Information Identification Type Name Patient History Per H&P: 68-year-old female history of hypertension, skin cancers who presents with complaint of left upper extremity and lower extremity weakness with a little bit of sensation change. Patient states maybe a little bit her left cheek as well. She noticed changes yesterday they had driven from [place] she got out of the car at the grocery store noticed it was difficult for her to lift her leg out of the car. She is noticed she has had a little bit of leg dragging the left side she has had a work little bit harder to walk. She is noticed her left upper extremity has also been weaker . She denies any vision changes no difficulty with speech. No headaches. Denies any fevers. No chest pain or shortness of breath. No nausea or vomiting. No other GI or urinary symptoms. Has not had similar symptoms in the past. Patient states she has had prior lumpectomy with breast reconstruction in 1999 8. In 2020 she had multiple surgeries and skin grafts for a basal cell carcinoma and MAC of the forehead and nose. Patient takes losartan and metoprolol as her home medications. States she was allergic to wall but no known drug allergies. Denies tobacco, occasional alcohol, no recreational drugs. She lives in [place] and is visiting the area with her . [facility] 3, out of time window. She has no history of TIA or stroke. She does not smoke and denies a family history other than while mom with a possible TIA. She does have blood pressure which is likely suboptimally controlled with systolics in the 135-145 range . She developed some leg weakness yesterday, but having just drove from [place] up to [place] she thought are related to being in the car for a sustained period of time . This morning her leg was more weak and she would difficulty walking and she also noticed her left arm was somewhat weak. She denies facial droop or slurred speech . She was with her of 50 years. He has not noticed a facial droop either. She did not have a headache or visual changes. She came to the ER where a CT was negative . She does have left arm and leg weakness at 5- out of 5 for both. She was a positive pronator drift and a positive abnormal left straight leg raise. Hearing Hearing Level Normal Previous Therapy Previous Speech-Language Therapy No Subjective Patient Report Pt seated upright in bed with empty breakfast tray present upon ST entry to room. Pt was awake, alert, oriented, cooperative, and provided timely and appropriate responses to FERRYBOAT OPERATOR questions/ comments. Pt stated she had just finished her breakfast. She reported no difficulty with eating or drinking during breakfast, denying coughing/ choking/feeling food or liquid going down the wrong tube. Pt had eaten 100% of breakfast tray and appeared to have had about 4oz water with breakfast. Pt stated that she did not feel she had any difficulty with her speech or language. She recalled OT evaluation and stated that she felt she was able to answer questions accurately, but that she had difficulty finding numbers during trail making task. Pt agreeable to language evaluation to assess for any deficits 2/ CVA. FERRYBOAT OPERATOR administered Quick Aphasia Battery. Mental Status Alert,Responsive,Cooperative Assessment Oral Motor Examination Completed Yes Results OME WFL. No deficits noted. Informal Assessment Receptive Language Normal Yes Expressive Language Normal Yes Pragmatic Language Normal Yes Speech Normal Yes Cognition Normal No: Mild visual attention deficits based on OT report Cognitive Impairment(s) Attention Formal Assessment Standardized Test/Screener Type Quick Aphasia Battery (QAB) Administration Complete Results Word comprehension: 10.00/10. 00 Sentence comprehension: 7.92/ 10.00 Word findin.00/10.00 Grammatical construction: 9.75 /10.00 Speech motor programmin. .00 Repetition: 9.17/.00 Readin..00 QAB overall: 9..00 According to the authors of the QAB, QAB overall scores between 8.9 and 10.0 are considered no aphasia. Overall, pt demonstrated some difficulty with sentence comprehension, but was able to quickly recognize deficits upon review. Her speech and language present as WFL at this time. Findings/Results Language Function Within functional limits Cognitive Function Mildly impaired (Very mild) Findings Pt's speech and language skills present as WFL at this time. Based on pt report of difficulty with trail making task as well as OT report, there may be some visual attention deficits present, indicating mild impairment in attention. Cognitive Communication Deficits Self-awareness of Cognitive- Situational awareness ( Communication Deficits recognition of problem in context;in real time) Impact on Functioning Safety Risks Mild: Managing Medication Traveling Alone in Community Prognosis Prognosis Good Based on Cognitive status,Duration of symptoms/severity Plan of Care Speech-Language Treatment No Patient/Caregiver Education Described results of evaluation,Patient expressed understanding of evaluation Discharge Recommendations Home
--- NOTE | 2024-03-27 11:03 | OT.IP.TRT ---
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 Diagnosis Onset Date 03/26/24 M3 OT- IP Subjective and Pain Start: 03/26/24 17:22 Freq: Status: Active Protocol: Document 03/27/24 11:05 [facility] (Rec: 03/27/24 11:13 [facility] [id number]) OT- Subjective Occupational Therapy Visit Type Type Treatment Note Visit Start Time 10:30 Visit Stop Time 11:03 Occupational Therapy Visit Comments Patient Comments Pt agreed to redo 9 hole peg test and get up for a walk. PT and present at the end of the session. Patient/Caregiver Goals To go home and continue her vacation. OT Pain Assessment Pain When Pain Assessed At Rest Pain Present Pain Present Denied Pain M4 OT- IP ADL's Start: 03/26/24 17:22 Freq: Status: Active Protocol: Document 03/27/24 11:05 [facility] (Rec: 03/27/24 11:13 [facility] [id number]) OT [id number] Comments OT Self-Feeding Comments Not at meal time. OT ADL-Grooming Comments OT Grooming Comments Not performed. OT ADL-Dressing General Eval Lower Body Dressing Ability Independent Comments OT Dressing Comments Pt able to yifan her socks independently. OT ADL-Toileting Comments OT Toileting Comments Pt states has been using the bathroom on her own. OT ADL-Bathing Comments OT Bathing Comments Pt will benefit from a shower chair. M5 OT- IP IADL's Start: 03/26/24 17:22 Freq: Status: Active Protocol: Document 03/26/24 17:22 [facility] (Rec: 03/26/24 17:59 [facility] [id number]) OT-Instrumental Activities of Daily Living Home Safety Awareness Awareness of Need for Assistance at Home Good Awareness Medication Management Medication Management Comments Pt will benefit from supervision from her . Money Management Money Management Comments Pt will benefit from supervision from her . Meal Preparation Meal Preparation Comments Pt will benefit from assist. Transport Corps Officer Transport Corps Officer Comments Pt will benefit from assist. Driving Driving Concerns Identified Regarding Safety M6 OT- IP Functional Cognition Start: 03/26/24 17:22 Freq: Status: Active Protocol: Document 03/27/24 11:05 [facility] (Rec: 03/27/24 11:13 [facility] [id number]) Cognitive Factors Limiting Selfcare Function Cognitive Ability Safety Awareness Underestimates Need for Assistance Cognitive Comments Cognitive Assessment Comments Intact, still needing slight increased time to process for mentation. Pt has decreased safety awareness. Pt agreed to get a 4ww for her balance needs. M7 OT- IP Mobility and Balance Start: 03/26/24 17:22 Freq: Status: Active Protocol: Document 03/27/24 11:05 [facility] (Rec: 03/27/24 11:13 [facility] [id number]) OT-Transfer Assessment Transfers Transfer Ability Standby Assistance,Contact Guard Assistance Devices Transfer Assistive Devices None,Straight Cane,4 Wheeled Walker Comments Mobility Comments Pt needing CGA with SPC andn use of 4ww SBA . pt at times catches her left toe on the floor and therefore is unsteady. Pt will benefit from assist for her to hold onto her. OT- Balance Assessment Sitting Balance and Reactions Static Sitting Balance Ability Normal Dynamic Sitting Balance Ability Normal Standing Balance and Reactions Static Standing Balance Ability Good Dynamic Standing Balance Ability Fair M8 OT- IP Objective Assessments Start: 03/26/24 17:22 Freq: Status: Active Protocol: Document 03/26/24 17:22 [facility] (Rec: 03/26/24 17:59 [facility] [id number]) OT Gross Range of Motion Upper Extremity Range of Motion Assessment Within Functional Limits OT Strength Upper Extremity Strength Assessment Left Impaired Comments Strength Comments LUE4-/5 OT- Coordination Assessment Upper Extremity Finger to Nose Test Within Functional Limits Comments Coordination Comments Increased time for finger to nose with left hand. Right hand 9 hole peg 21 seconds 75% for her age. Left hand 9 hole peg 31 second under 25% for her age. Able to give pt theraputty for hand strengthening needs. OT Sensation Assessment Comments Summary Comments Decreased for kinesthesia from wrist to distally. M9 OT- IP Assessment and Plan Start: 03/26/24 17:22 Freq: Status: Active Protocol: Document 03/27/24 11:05 [facility] (Rec: 03/27/24 11:13 [facility] [id number]) OT Summary Assessment and Plan Potential Rehabilitation Potential Excellent Analytic Complexity at Evaluation Moderate Summary OT Impairments Balance,Coordination, Functional Cognition, Functional Mobility,Dressing, Toileting,Bathing,Toilet Transfers,Shower Transfers Progress Towards Goals Progressing Toward Goals Assessment Summary Pt a little more unsteady on her feet today and occasionally catching her left toe on the floor and therefore would benefit from getting a 4ww. In addition pt will benefit from a shower chair at well. Pt will benefit form outpt PT to continue to work on dynamic balance needs. Pt to go home with 24/7 assist. NOted today decreased left UE swing while walking. LUE 9 hole peg improved from 31 to 27 seconds. Goals Dressing Goal Independent Toileting Goal Independent Bathing Goal Independent Toilet Transfer Goal Independent Shower Transfer Goal Independent Days to Meet Goals 2 Frequency of Treatment Frequency Of Treatment Once a Day Treatment Plan OT Treatment Plan ADL Training,Functional Cognition Training,Functional Mobility,Vision Retraining, Discharge Planning Discharge Recommendations OT Discharge Recommendations Home with Assistance, Outpatient PT Home Equipment Needs shower chair, 4ww Transportation Needs at Discharge Private Vehicle
--- NOTE | 2024-03-27 11:05 | PM.DS.1 ---
History of Present Illness History of Present Illness Chief complaint: poss stroke Narrative: From ED doctor: 68-year-old female history of hypertension, skin cancers who presents with complaint of left upper extremity and lower extremity weakness with a little bit of sensation change. Patient states maybe a little bit her left cheek as well. She noticed changes yesterday they had driven from [place] she got out of the car at the grocery store noticed it was difficult for her to lift her leg out of the car. She is noticed she has had a little bit of leg dragging the left side she has had a work little bit harder to walk. She is noticed her left upper extremity has also been weaker. She denies any vision changes no difficulty with speech. No headaches. Denies any fevers. No chest pain or shortness of breath. No nausea or vomiting. No other GI or urinary symptoms. Has not had similar symptoms in the past. Patient states she has had prior lumpectomy with breast reconstruction in 1999 8. In 2020 she had multiple surgeries and skin grafts for a basal cell carcinoma and MAC of the forehead and nose. Patient takes losartan and metoprolol as her home medications. States she was allergic to wall but no known drug allergies. Denies tobacco, occasional alcohol, no recreational drugs. She lives in [place] and is visiting the area with her . On Anticoagulants: No NIH 3, out of time window. S: She has no history of TIA or stroke. She does not smoke and denies a family history other than while mom with a possible TIA. She does have blood pressure which is likely suboptimally controlled with systolics in the 135-145 range. She developed some leg weakness yesterday, but having just drove from [place] up to [place] she thought are related to being in the car for a sustained period of time. This morning her leg was more weak and she would difficulty walking and she also noticed her left arm was somewhat weak. She denies facial droop or slurred speech. She was with her of 50 years. He has not noticed a facial droop either. She did not have a headache or visual changes. She came to the ER where a CT was negative. She does have left arm and leg weakness at 5- out of 5 for both. She was a positive pronator drift and a positive abnormal left straight leg raise. Discharge Providers Provider Date of admission: 03/26/24 14:01 Discharge Date: 03/27/24 Consults: 03/26/24 14:25 Consult to Discharge Planning Routine Comment: Consult to Occupational Therapy Evaluate & Treat Comment: Physician Instructions: Evaluate and treat Consult to Physical Therapy Evaluate & Treat Comment: Physician Instructions: Evaluate and Treat Consult to Speech Therapy Evaluate & Treat Comment: Physician Instructions: Evaluate and treat Discharge provider: Sonny Bazan MD Summary Hospital Course Discharge Diagnosis: 1. Subacute CVA, present on admission and active. 2. Hypertension, present on admission and active. 3. Breast cancer, present on admission and active. 4. Osteoporosis, present on admission and active. Hospital Course: Patient was a 68-year-old female who was admitted with subacute left arm and leg weakness. Her symptoms are quite mild. They have been ongoing for about a day prior to arrival. She was visiting from [place], they drove their car up here. MRI confirmed a right frontal cortical infarct. She did well with speech, physical therapy, and occupational therapies. She was started on dual antiplatelet therapy for 21-30 days which can be followed by monotherapy. She was started on statin, high dose. She was able to ambulate without assist however a walker was recommended in the day of discharge. Her blood pressure was high, but improved. She was felt to be stable for discharge he will resume her blood pressure medications and continue dual antiplatelet therapy and statin. She will follow up with her physician in [place] as soon as she returns in about 2 weeks. She knows to follow up immediately for any neurologic symptoms. They are traveling through the local area and then across [place] and back down to [place]. Status at Discharge Cognitive/behavioral status at discharge: at baseline, oriented Functional status at discharge: independent ambulation Overall status at discharge: patient is progressing back to baseline Time Spent with Patient Time spent: Greater than 30 minutes Exam Vital Signs (past 8 hours): - 03/27/24 03:13 03/27/24 08:00 Temperature 97.6 F 97 F L Pulse Rate 65 56 L Respiratory Rate 13 19 Blood Pressure 139/69 172/73 H Pulse Oximetry 97 96 Oxygen Flow Rate 0 0 Oxygen Delivery Method Room Air Oxygen Flow Rate 0 Narrative Exam Narrative: NAD, alert and oriented. Fluent speech. Lungs are clear, normal rate and effort. Heart is regular, no murmur gallop or rub. Abdomen is soft, non distended. Extremities are free of edema. Negative pronator drift, very mild weakness of the left leg. No facial droop or slurred speech. Objective ECG Impression: NSR Imaging Multiple studies:: Radiologist's impression: CT brain: No acute intracranial pathology. CTA head and neck: No significant intracranial arterial abnormality is seen. No significant abnormality is seen within the arteries of the neck. MRI brain: There is a subacute infarction seen involving the deep white matter of the right frontal lobe. ECHO: Left ventricular ejection fraction is estimated to be 50%. Injection of contrast documented no interatrial shunt. There is mild mitral regurgitation. The right ventricular systolic pressure is estimated to be at least 23 mmHg based on an estimated right atrial pressure of 3 mm Hg. There is mild tricuspid regurgitation. Labs 03/27/24 04:25 03/27/24 04:25 Labs: Laboratory Results - last 24 hr 03/26/24 03/26/24 03/27/24 11:44 12:23 04:25 WBC 8.1 7.2 RBC 4.68 4.58 Hgb 13.8 13.6 Hct 41.2 40.3 MCV 88.0 88.0 MCH 29.4 29.7 MCHC 33.4 33.7 RDW 14.3 14.2 Plt Count 287 260 Neut % (Auto) 61.3 46.8 L Lymph % (Auto) 28.8 39.5 Howard % (Auto) 6.8 8.8 Eos % (Auto) 2.0 3.7 Baso % (Auto) 1.1 1.2 Neut # (Auto) 4900 3400 Lymph # (Auto) 2300 2900 Howard # (Auto) 600 600 Eos # (Auto) 200 300 Baso # (Auto) 100 100 PT 11.1 INR 1.0 APTT 36 Sodium 140 140 Potassium 4.3 4.1 Chloride 109 H 109 H Carbon Dioxide 25 26 BUN 17 14 Creatinine 0.67 0.61 Estimated GFR > 60 > 60 BUN/Creatinine Ratio 25.4 H 23.0 H Glucose 111 H 99 Hemoglobin A1c 5.7 Calcium 9.5 8.7 Magnesium 2.4 H Total Bilirubin 1.1 AST 25 ALT 17 Alkaline Phosphatase 96 Total Creatine Kinase 74 Troponin I < 0.012 Total Protein 7.8 Albumin 4.2 Globulin 3.6 Albumin/Globulin Ratio 1.2 Urine RBC None seen Urine WBC None seen Ur Squamous Epith Cells None seen Urine Bacteria None seen Ur Culture Indicated? Cult not indicated Vol Urine Centrifuged 10ml (spun) U Opiates 300ng/mL cut Negative Ur Oxycodone Screen Negative Urine Methadone Screen Negative Ur Barbiturates Screen Negative U Tricyclic Antidepress Negative Ur Phencyclidine Scrn Negative Ur Amphetamines Screen Negative U Methamphetamines Scrn Negative Ur MDMA Scrn (Ecstasy) Negative U Benzodiazepines Scrn Negative Urine Cocaine Screen Negative U Marijuana (THC) Screen Negative Urine pH Normal Urine Specific [place] Normal Ur Creatinine Normal PFSH Social History household members: spouse Smoking Status: Never smoker alcohol intake: current Discharge Assessment & Plan Assessment and Plan Assessment: 1. Subacute CVA, present on admission and active. 2. Hypertension, present on admission and active. 3. Breast cancer, present on admission and active. 4. Osteoporosis, present on admission and active. Plan of Treatment: Stable for discharge on dual antiplatelet therapy and statin. Close follow up with PCP upon return to [facility]. We will use a walker for the most part in the meantime. Discharge Plan Discharge Plan Patient Disposition: Home Provider Discharge Comment: Stable for discharge, she will use a 4 wheeled walker. Primary care within 2 weeks upon return to [facility]. Discharge orders & Medications Prescriptions: New atorvastatin 20 mg Tablet 80 mg PO BEDTIME Qty: 120 0RF clopidogrel 75 mg Tablet 75 mg PO DAILY Qty: 30 0RF aspirin 81 mg Tablet,Delayed Release (Dr/Ec) 81 mg PO DAILY Qty: 30 0RF Continued Prolia 60 mg/mL syringe 60 mg SUBCUT [id number] letrozole 2.5 mg tablet 2.5 mg PO ONCE PM losartan 100 mg tablet 100 mg PO DAILY triamcinolone acetonide 0.1 % ointment 1 applic TOPICAL DAILY Patient Comments: PLEASE SEE ATTACHED FOR DETAILED DIRECTIONS metoprolol succinate 25 mg tablet extended release 24 hr 25 mg PO DAILY Discharge Health Status Multidrug resistant organism: No MDRO Diet/Activity/Treatments Diet: Low-fat Activity: As tolerated, would use a walker for the next week to 2 weeks as you improve. Visit Report/Discharge Packet Instructions: Progress in Stroke Prevention, DI for Stroke-Ischemic, Right Brain Stroke Stand Alone Forms: Patient Portal/API, Stroke Signs & Symptoms Discharge Data Attending Provider: Sonny Bazan Admit Date/Time: 03/26/24 14:01 Quality VTE Deep Vein Thrombosis/Pulmonary Embolism Present on Admission: No
--- NOTE | 2024-03-27 11:13 | PT.IIE ---
Physical Therapy Inpatient Evaluation/Re-Eval M1 PT/OT-IP Prior Functional Status Start: 03/26/24 17:22 Freq: NEEDED Status: Active Protocol: Document 03/27/24 11:02 MB (Rec: 03/27/24 11:13 MB [id number]) Medical Review Prior Functional Status Medical History Reviewed Yes Diet/Fluid Consistency Regular Communication Independent Mobility and Gait Independent with no devices. Activities of Daily Living and IADL's Completely independent with all ADL, IADL needs, and drives. Social History Household Members spouse Living Arrangements House Additional Social History Comment Pt staying at her neighbors and there are a few steps with right rail ascend to enter. No AD at the house and pt does not have any. Friend is a member of [employer]. M2 PT-IP Current Condition Start: 03/27/24 08:16 Freq: NEEDED Status: Active Protocol: Document 03/27/24 11:02 MB (Rec: 03/27/24 11:13 MB [id number]) Physical Therapy Current Condition Current Condition Evaluation Date 03/27/24 Treatment Diagnosis R frontal stroke M3 PT-IP Subjective Start: 03/27/24 08:16 Freq: NEEDED Status: Active Protocol: Document 03/27/24 11:02 MB (Rec: 03/27/24 11:13 MB [id number]) Subjective Physical Therapy Visit Type Type Initial Evaluation Visit Start Time 10:37 Visit Stop Time 10:57 Number of CLINIC LICENSED PRACTICAL NURSE Visits 0 Physical Therapy Visit Comments Patient Comments Pt states she is feeling better and her and her will con't on their travels in [place] until the end of the month and then return to [place]. Pt states she does not have a PCP in [place]. They plan to leave for [place] Therapy Pain Assessment Pain When Pain Assessed At Rest Pain Present Pain Present Denied Pain M4 PT-IP Mobility and Gait Start: 03/27/24 08:16 Freq: NEEDED Status: Active Protocol: Document 03/27/24 11:02 MB (Rec: 03/27/24 11:13 MB [id number]) PT-Transfer Assessment Sit to and From Stand Sit to and from Stand Standby Assistance Equipment Transfer Assistive Device Gait Belt Orthotic/Prosthetic Devices or Brace: No Transfers Transfer Destination Bed Transfer Technique Ambulation Transfer Ability Level of Assist Standby Assistance Comments Mobility Comments PT provides SBA and gait belt on pt and PT ed pt's in use of gait belt after treatment. Gait Assessment Gait Gait Assistance Required: Standby Assistance,Contact Guard Assist Distance (Feet) 100 Able to Maintain Weight Bearing Status Yes During Gait Assistive Devices Assistive Device Gait Belt,Straight Cane,4 Wheeled Walker Orthotic/Prosthetic Devices or Brace: No Gait Deviations General Gait Pattern Ataxic,Decreased Stride Length ,Decreased Feet Clearance Factors Limiting Gait Function Factors Limiting Gait Function Abnormal Tonal Influences, Decreased Sensation,Decreased Strength,Incoordination,Poor Balance,Poor Safety Awareness Comments Gait Comments Gait 100' without AD and pt with left toe drag occ and imbalance, 100' SPC gait training in right hand and pt with bigger steps and fast gait and cues and has better left toe clearance, 4WRW gait at least 100' with cues for locking and how to perform retropulsion and STS from 4WRW and gait best with this device. Ed pt in benefits and asking friend to borrow one from [employer] and to use when off roading outside, ed pt in risk of falls when getting up to toilet or after sitting d/t incoordination left foot Stair Climbing Assessment Evaluation Level of Assist On Stairs Standby Assistance Devices Stair Climbing Assistive Devices Right Railing Technique/Endurance Stair Climbing Direction Ascend and Descend Stair Climbing Technique Step Over Step Number of Steps Climbed 3 Query Text: Stair Climbing Set # Repetitions (reps) 1 Comments Stair Climbing Comments Left foot clears with all steps PT-Balance Assessment Sitting Balance and Reactions Static Sitting Balance Ability Normal Dynamic Sitting Balance Ability Normal Standing Balance and Reactions Static Standing Balance Ability Good Dynamic Standing Balance Ability Fair Device Used None M5 PT-IP Objective Assessments Start: 03/27/24 08:16 Freq: NEEDED Status: Active Protocol: Document 03/27/24 11:02 MB (Rec: 03/27/24 11:13 MB [id number]) Orientation Orientation/Cognition Level of Alertness Alert Orientation Name,Age,Birthday,Month,Date, Year,Day of Week,Place, Situation Language Function Ability No Deficits Noted Safety Awareness Decreased Safety Awareness Memory Description No Deficits Noted Gross Range of Motion Upper Extremity ROM Impairments Defer to OT Lower Extremity ROM Assessment Within Functional Limits Impairments In sitting, normal but functional foot drop and toe drag left occ with gait Strength Lower Extremity Strength Assessment Within Functional Limits Comments Strength Comments LEs test normal with MMT and pt has occ functional toe drag left foot with gait Coordination Assessment Gross Coordination Gross Coordination Impaired Assessment Heel on [place] Test Minimal Impairment Coordination Comments LLE impaired and right normal Sensation Assessment Sensation Gross Sensation WNL Comments Sensation Comments However, pt has proprioceptive challenges with gait and pt left arm does not swing with gait and she has the occ left foot and toe drag with gait Muscle Tone Muscle Tone WNL Yes M6 PT-IP Treatment Start: 03/27/24 08:16 Freq: NEEDED Status: Active Protocol: Document 03/27/24 11:02 MB (Rec: 03/27/24 11:13 [id number]) Physical Therapy Treatment Education Education Provided Safety Other Treatments Other Treatment Performed Education as described above to pt and M7 PT-IP Assessment and Plan Start: 03/27/24 08:16 Freq: NEEDED Status: Active Protocol: Document 03/27/24 11:02 MB (Rec: 03/27/24 11:13 [id number]) PT Summary Assessment and Plan Potential Rehabilitation Potential Good Status of Condition at Evaluation Evolving Summary Impairments ROM,Strength,Balance, Coordination,Sensation,Gait Assessment Summary Pt is a 68 y/o female presenting with left LE coordination, proprioception and gait changes s/p right frontal stroke. MMT is normal but gait reveals no left arm swing (arm dangles straight at side) and occ left toe drag with gait and increased imbalance. Pt best gait trains with 4WRW and spoke with pt and about borrowing one from [employer] at d/c. Pt and to con't their travels in [place] until the end of the month. Pt states she does not have a PCP in [place]. Ideally , getting set-up with OPPT at her home would help with balance training. Frequency of Treatment Frequency Of Treatment Discharge Weight Bearing Status Weight Bearing Status Weight Bear as Tolerated Recommendations To Nursing Amount of Assist Needed Standby Assistance Discharge Recommendations PT Discharge Recommendations Home with Assistance, Outpatient PT Transportation Needs at Discharge Private Vehicle
== END 2024-03-27 11:40 | disposition home or self-care (01) ==
LOC: ED 13:34 → AC 14:01
PROVIDERS: Admitting Provider Hospitalist; Emergency Provider Emergency Medicine; Referring Provider Emergency Medicine; Visit Provider Hospitalist
DX: I63.89 Other cerebral infarction (principal); R29.703 NIHSS score 3; I10 Essential (primary) hypertension
CPT/HCPCS: 36415; 70450; 70496; 70498; 70551; 71045; 80048; 80053; 80305; 81003; 81015; 82550; 82962; 83036; 83735; 84484; 85025; 85610; 85730; 92523; 93005; 93010; 93306; 96372; 97129; 97161; 97166; 97530; 99285; G0378; J1644; Q9967